=== PATIENT | male | born 1965 | race Two or more races ===

== ENCOUNTER 2021-03-13 05:55 | Day surgery (SDC) | payer OTHER ==
[~2021-03-13 05:55] MED LIST: LOSARTAN-HCTZ1 EAC1 PO; PRILOSEC OTC20 MG PO; PROAIR HFA8.5 GM IH; SINGULAIR10 MG PO; TOPROL XL50 M1 PO
== END 2021-03-13 13:05 | disposition home or self-care (01) ==
LOC: CIR.AMB 05:55 → EDBD 11:00 → CIR.AMB 11:00
PROVIDERS: ATTEND Colon & Rectal Surgery
DX: K81.1 Chronic cholecystitis (principal)